=== PATIENT | male | born 1985 | race Caucasian/White ===

== ENCOUNTER 2018-10-07 04:58 | Emergency (ER) | payer MEDICAID ==
[~2018-10-07] VITALS: Ht 180.3 cm; Wt 74.5 kg
[2018-10-07] MEDS ORDERED: REME30TA PO (05:11)
[2018-10-07 05:14] VITALS: BP 120/67
== END 2018-10-07 08:42 | disposition left against medical advice (07) ==
LOC: M ED 04:58
DX: M62.81 Muscle weakness (generalized) (principal); E86.0 Dehydration; E46 Unspecified protein-calorie malnutrition; F10.10 Alcohol abuse, uncomplicated; F19.10 Other psychoactive substance abuse, uncomplicated; Z87.891 Personal history of nicotine dependence; Z79.899 Other long term (current) drug therapy; Z53.21 Procedure and treatment not carried out due to patient leaving prior to being seen by health care provider